=== PATIENT | male | born 1990 ===

== ENCOUNTER 2020-03-31 09:20 | Outpatient (CLI) | payer OTHER, SELFPAY ==
--- NOTE | ~2020-03-31 | US_ITS ---
EXAMINATION: US biopsy lymph node DATE: 03/31/2020 10:10 INDICATION: Left cervical and supraclavicular lymphadenopathy. TECHNIQUE: The procedure including the risks and benefits was discussed with the patient. Risks discu ssed included bleeding and infection. The patient understood the risks and agreed to proceed. The sk in overlying the left neck was prepped and draped in usual sterile fashion. Anesthetic was administe red with 1% lidocaine subcutaneously. An 14 gauge core biopsy needle was advanced under continuous u ltrasound observation to the lesion of interest. 5 core biopsy specimens were obtained, for placed i n RPMI media and 1 in formalin. The needle was removed and the entry site was cleaned and dressed. Post procedure ultrasound demonstrated no hemorrhage. FINDINGS: Ultrasound images demonstrate bulky left jugular chain and supraclavicular lymphadenopathy. Subsequent images demonstrate biopsy needle advanced into a 4.1 x 2.5 x 2.0 cm conglomeration of lef t supraclavicular lymph nodes. IMPRESSION: 1. Successful Ultrasound-guided biopsy of enlarged left supraclavicular lymph nodes. Reviewed, dictated and finalized at location A. IMPRESSION: 1. Successful Ultrasound-guided biopsy of enlarged left supraclavicular lymph n odes.
== END 2020-03-31 09:21 | disposition home or self-care (01) ==
PROVIDERS: PCP Chiropractor; Visit Provider Surgery
DX: R59.0 Localized enlarged lymph nodes (principal); C81.71 Other Hodgkin lymphoma, lymph nodes of head, face, and neck
CPT/HCPCS: 38505; 76942; 88305